=== PATIENT | male | born 1995 | race African-American/Black ===

== ENCOUNTER 2017-07-24 14:38 | Emergency (ER) | payer OTHER ==
[~2017-07-24] VITALS: Ht 182.9 cm; Wt 83.9 kg
[2017-07-24 14:48] VITALS: BP 143/75
[2017-07-24] MEDS ORDERED: TDAP [DIPH/PERTUSSIS/TET] 0.5 ML VIAL IM ONE ×2 (15:00→15:02)
[2017-07-24] MEDS ORDERED: ACETAMINOPHEN ES 500 MG TABLET PO ONE (15:00)
[2017-07-24] MEDS ORDERED: ACETAMINOPHEN ES 500 MG TABLET ONE (15:02)
== END 2017-07-24 15:49 ==
LOC: ER 14:44
DX: S06.0X0A Concussion without loss of consciousness, initial encounter (principal); S01.511A Laceration without foreign body of lip, initial encounter; S20.211A Contusion of right front wall of thorax, initial encounter; Y04.8XXA Assault by other bodily force, initial encounter; Y93.89 Activity, other specified; Y92.89 Other specified places as the place of occurrence of the external cause; Y99.8 Other external cause status
CPT/HCPCS: 70450-TC; 71100-TC; 90715; A4606; Z7610